=== PATIENT | female | born 1975 | race Caucasian/White ===

== ENCOUNTER → 2022-01-06 | Day surgery (SDC) | payer OTHER ==
[~2022-01-06] VITALS: Ht 175.3 cm; Wt 83.9 kg
[~2022-01-06] MED LIST: ALLEGRA ALLERG180 MG PO; DICLOFENAC35 MG PO; HYDROCHLOROTH12.5 MG PO; METFORMIN HCL1000 MG PO; MULTI-VITAMIN1 EACH PO; NORETHINDRONE0.35 MG PO; PROBIOTIC ACID1 EAC3 PO
[2022-01-06 10:34] LABS: HCG (URINE) SCREEN NEGATIVE (NEGATIVE)
[2022-01-06 11:15] LABS: HCT 36.4 % (37.0-47.0); HGB 11.8 g/dl (12.5-16.0); MCH 29.8 pg (25.0-31.0); MCHC 32.4 g/dL (32.0-36.0); MCV 91.9 fL (78.0-100.0); MPV 11.3 fL (6.0-9.5); RBC 3.96 M/uL (4.20-5.40); RDW 12.6 % (11.5-14.0); WBC 9.9 K/uL (4.0-10.5)
[2022-01-06 11:33] LABS: BUN/CREAT RATIO (CALC) 35.1 RATIO; CREATININE 0.77 mg/dL (0.51-0.95); POTASSIUM 3.5 mmol/L (3.5-5.1)
== END | disposition home or self-care (01) ==
LOC: FAS 10:02
PROVIDERS: Anesthesiology
DX: D25.0 Submucous leiomyoma of uterus (principal); D25.1 Intramural leiomyoma of uterus; N72 Inflammatory disease of cervix uteri; N92.1 Excessive and frequent menstruation with irregular cycle; N81.11 Cystocele, midline; Z79.84 Long term (current) use of oral hypoglycemic drugs; Z79.899 Other long term (current) drug therapy
CPT/HCPCS: 36415; 80048; 84703; 86850; 86900; 86901; J0690; J1100; J1170; J1885; J2250; J2405; J3010; J7120